=== PATIENT | male | born 1985 | race American Indian/Alaskan Native ===

== ENCOUNTER 2020-09-28 03:15 | Emergency (ER) | payer SELFPAY ==
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
== END 2020-09-28 04:20 | disposition left against medical advice (07) ==
LOC: JD.ED 03:15
DX: Z53.21 Procedure and treatment not carried out due to patient leaving prior to being seen by health care provider (principal)
CPT/HCPCS: 99282